=== PATIENT | male | born 1980 | race Caucasian/White ===

== ENCOUNTER 2016-10-04 10:05 | Outpatient (CLI) | payer OTHER ==
--- NOTE | 2016-10-04 12:31 | RAD ---
FOUR VIEWS OF THE LEFT ELBOW: Date: 10-04-16 History: Left elbow pain. FINDINGS: There is no evidence of a fracture, dislocation, or other osseous abnormality involving the left elb ow. IMPRESSION: No acute osseous abnormality visualized. POS: [id number]
== END 2016-10-04 10:06 | disposition home or self-care (01) ==
LOC: NAV RAD 10:05
PROVIDERS: ATTEND Family Medicine
DX: M25.522 Pain in left elbow (principal)

== ENCOUNTER 2025-09-04 17:22 | Emergency (ER) | payer BC, SELFPAY | END 2025-09-04 19:15 | disposition home or self-care (01) | LOC: NAV ERS 17:22 | DX: J06.9 Acute upper respiratory infection, unspecified (principal); F17.210 Nicotine dependence, cigarettes, uncomplicated | CPT/HCPCS: 71046; 87428 ==